=== PATIENT | male | born 1965 | race Caucasian/White ===

== ENCOUNTER 2020-12-07 16:11 | Emergency (ER) | payer OTHER, SELFPAY ==
--- NOTE | ~2020-12-07 | XR_ITS ---
EXAMINATION: XR knee LT 3V EXAM DATE: 12/07/2020 16:59 INDICATION: Strained left knee, persistent pain. TECHNIQUE: Three projections of the left knee. There is no prior study for comparison. FINDINGS: No evidence osteochondral defect or joint body in the left knee joint. There are no acute fractures or dislocations identified. There is no subcutaneous gas. There is soft tissue swelling s urrounding the knee within subcutaneous fat. There are no radiopaque foreign bodies. No joint effu arnulfo. IMPRESSION: 1. XR knee LT 3V exam without acute osseous findings. 2. Soft tissue swelling. Reviewed, dictated and finalized at location A. [employer] TE[employer]ER
[2020-12-07 16:33] VITALS: BP 139/87; PULSE 83; RESP 16; TEMP 36.6; O2SAT 98
--- NOTE | 2020-12-07 16:46 | ED.LOWEXIN ---
HPI - Extremity Injury (Lower) General Chief Complaint: Extremity Injury, Lower Stated Complaint: Leg Pain Source: patient Mode of arrival: ambulatory Limitations: no limitations History of Present Illness HPI Narrative: Patient is a 55-year-old male who presents complaining of left knee pain. He reports slipping and falling on ice last week states I landed in the splits . Reports pain to left knee and to left posterior thigh immediately prior to the fall. He reports he felt a pop. He denies taking [id number] medications for pain. He reports using ice for discomfort about. Patient reports increased pain with ambulation. He reports large amount of bruising to left thigh and moderate swelling to left knee. He denies all other injuries. Patient is not on blood thinners and denies significant medical history. Related Data Home Medications Medication Instructions Recorded Confirmed No Home Medications 12/07/20 12/07/20 Allergies Allergy/AdvReac Type Severity Reaction Status Date / Time No Known Allergies Allergy Verified 12/07/20 16:27 Review of Systems Review of Systems: Narrative: CONSTITUTIONAL: Denies fever, chills, or sweats. EYES: Denies visual changes, redness, or discharge. ENT: Denies rhinorrhea, congestion, sore throat, or otalgia. CARDIOVASCULAR: Denies chest pain, palpitations, or edema. RESPIRATORY: Denies cough or dyspnea. GASTROINTESTINAL: Denies abdominal pain, nausea, vomiting, or diarrhea. GENITOURINARY: Denies dysuria or hematuria. SKIN: Denies rash or itching. MUSCULOSKELETAL: Left knee pain NEUROLOGIC: Denies headache, numbness, dizziness, or weakness. PSYCHIATRIC: Denies anxiety or depression. FORMERLY [facility], [facility] Past Medical History Medical History (Updated 12/07/20 @ 16:53 by JENNY Lawler) No significant past medical history Surgical History Surgical History (Updated 12/07/20 @ 16:49 by JENNY Lawler) No significant past surgical history Family History Family History (Updated 12/07/20 @ 16:49 by JENNY aLwler) Other No significant family history Social History Social History (Updated 12/07/20 @ 16:50 by JENNY Lawler) Smoking status: Never smoker Alcohol intake: current Alcohol use details: Occasional Substance use: never Living arrangements: with family Occupation/Education: occupation Gender identity (if verbalized by the patient): Male Comments At the time of signature, I have reviewed and agree with nursing past medical, surgical, social, and family history unless otherwise noted. Please see nursing chart for further information. There is no relevant family history pertinent to the presenting complaint. Exam Narrative: Exam Narrative: GENERAL: Well-appearing, well-nourished, and in no acute distress. HEAD: Normocephalic, atraumatic. EYES: No redness or drainage. ENT: Mucous membranes pink and moist. CHEST: No respiratory distress. HEART: Regular rate and rhythm. GI: Soft, nontender without rebound, or guarding. No distention. Bowel sounds normal in all quadrants. MUSCULOSKELETAL: No bony tenderness. EXTREMITIES: Moderate edema to left knee, mild tenderness with palpation. Moderate amount of ecchymosis to left posterior thigh. SKIN: Warm, dry, no rash. NEURO: No focal deficits. Alert and oriented x3. Gait steady. PSYCH: Normal affect. No signs of depression or anxiety. Course Vital Signs Vital signs: Vital Signs Temperature 36.6 C 12/07/20 16:33 Pulse Rate 83 12/07/20 16:33 Respiratory Rate 16 12/07/20 16:33 Blood Pressure 139/87 12/07/20 16:33 Pulse Oximetry 98 12/07/20 16:33 Temperature 36.6 C 12/07/20 16:33 Pulse Rate 83 12/07/20 16:33 Respiratory Rate 16 12/07/20 16:33 Blood Pressure 139/87 12/07/20 16:33 Pulse Oximetry 98 12/07/20 16:33 Reviewed. Patient has been instructed to follow-up with his PCP regarding his blood pressure. MDM - Extremity Injury
== END 2020-12-07 17:17 | disposition home or self-care (01) ==
PROVIDERS: Emergency Provider Nurse Practitioner
DX: S86.912A Strain of unspecified muscle(s) and tendon(s) at lower leg level, left leg, initial encounter (principal); W00.0XXA Fall on same level due to ice and snow, initial encounter
CPT/HCPCS: 73562; 99203; G0463